=== PATIENT | female | born 1985 | race Caucasian/White ===

== ENCOUNTER 2024-10-13 22:32 | Emergency (ER) | payer BC ==
[~2024-10-13] VITALS: Ht 157.5 cm; Wt 49.9 kg
[2024-10-13] MEDS: methylPREDNISolone SOD SUCC 125 MG/2 ML VIAL IV ONE (22:57)
[2024-10-13] MEDS: FAMOTIDINE. 20 MG/2 ML VIAL IV ONE (22:58)
[2024-10-13 23:52] LABS: BASOPHILS % (AUTO) 0.1 % (0.0-2.0); EOSINOPHILS # (AUTO) 0.3 K/uL (0.0-0.7); EOSINOPHILS % (AUTO) 3.1 % (0.0-7.0); HEMATOCRIT 38.5 % (31.2-41.9); HEMOGLOBIN 13.1 g/dL (10.9-14.3); LYMPHOCYTES # (AUTO) 1.6 K/uL (0.8-4.8); MEAN CORPUSCULAR HGB CONC 34 g/dL (32.3-35.6); MEAN CORPUSCULAR VOLUME 91.1 fL (75.5-95.3); MONOCYTES # (AUTO) 0.5 K/uL (0.1-1.30); MONOCYTES % (AUTO) 6.1 % (0.0-11.0); NEUTROPHILS % (AUTO) 71.7 % (38.5-71.5); PLATELET COUNT (AUTO) 214 K/uL (179-408); RED BLOOD CELL COUNT(AUTO) 4.22 MIL/uL (3.63-4.92); RED CELL DISTRIBUTION WIDTH 12.6 % (12.3-17.7); WHITE BLOOD COUNT (AUTO) 8.4 K/uL (3.8-11.8)
[2024-10-13 23:57] LABS: DIFFERENTIAL COMMENT 1
[2024-10-14 00:03] LABS: CALCIUM 9.8 mg/dL (8.5-10.1); CREATININE 0.8 mg/dL (0.6-1.3); POTASSIUM 3.7 mmol/L (3.5-5.1)
[2024-10-14 00:08] LABS: ALBUMIN 3.9 g/dL (3.4-5.0); BILIRUBIN,TOTAL 0.4 mg/dL (0.2-1.0)
[2024-10-14] MEDS ORDERED: LORA10CA PO (01:54)
[2024-10-14] MEDS ORDERED: EPIN0.3P3 IM (01:54)
[2024-10-14] MEDS ORDERED: PRED20TA PO (01:54)
[2024-10-14] MEDS ORDERED: TRIA15CR2 TP (03:12)
[2024-10-14 04:03] VITALS: BP 120/64; TEMP 97.8; O2SAT 98
== END 2024-10-14 04:03 | disposition home or self-care (01) ==
LOC: ER 22:52
DX: T78.3XXA Angioneurotic edema, initial encounter (principal); R07.89 Other chest pain; R94.31 Abnormal electrocardiogram [ECG] [EKG]; L23.9 Allergic contact dermatitis, unspecified cause; Z79.52 Long term (current) use of systemic steroids; Z88.2 Allergy status to sulfonamides; Z91.030 Bee allergy status; Y84.8 Other medical procedures as the cause of abnormal reaction of the patient, or of later complication, without mention of misadventure at the time of the procedure; Y82.8 Other medical devices associated with adverse incidents
CPT/HCPCS: 80053; 85025; 84484; 36415; 71045; 93005; 99285; 96374; 96375; J1308; J2919; A4606; A4663